=== PATIENT | female | born 1935 | race Caucasian/White ===

== ENCOUNTER 2018-01-22 10:53 | Inpatient (IN) | payer OTHER ==
[~2018-01-22] VITALS: Ht 139.7 cm; Wt 78.0 kg
[2018-01-22] VITALS: BP 104/65; PULSE 67; TEMP 37; O2SAT 91
[~2018-01-22 10:53] MED LIST: ATOR-22 PO; BIMA0.038 OPB; CALC200S; CLTP PO; GLUCOSAMINE PO; LISI-725 PO; METO50TA8 PO; MULT-506 PO; NXM/40 PO; RSTOPS OP; XNX25 PO; [UNRECOGNIZED DRUG - OTHER] OPB; [UNRECOGNIZED DRUG - OTHER] PO; timolol OPL
[2018-01-22] MEDS ORDERED: ACETAMINOPHEN IV 100 ML IV STA (11:20)
[2018-01-22] MEDS ORDERED: SODIUM CHLORIDE 0.9% 500ML 500 ML IV STA (11:20)
[2018-01-22] MEDS ORDERED: CHOL1000 PO (11:33)
[2018-01-22] MEDS ORDERED: LEVO50TA PO (11:33)
[2018-01-22] MEDS ORDERED: LISI-789 PO (11:33)
[2018-01-22] MEDS ORDERED: CITA10TA4 PO (11:33)
[2018-01-22] MEDS ORDERED: CALC200S6 (11:33)
[2018-01-22] MEDS ORDERED: FAMO20TA11 PO (11:33)
[2018-01-22] MEDS ORDERED: METO25TA3 PO (11:33)
[2018-01-22] MEDS ORDERED: LOPE1CAP6 PO ×2 (11:33)
[2018-01-22] MEDS ORDERED: GLUCTAB54 PO (11:33)
[2018-01-22] MEDS ORDERED: ALPR-411 PO (11:33)
[2018-01-22] MEDS ORDERED: FRS/40 PO (11:33)
[2018-01-22] MEDS ORDERED: OMEG10007 PO (11:33)
[2018-01-22] MEDS ORDERED: ALEN70TA4 PO (11:33)
[2018-01-22] MEDS ORDERED: PANT40TA PO (11:33)
[2018-01-22] MEDS ORDERED: PRED1SUS17 OPB (11:47)
[2018-01-22] MEDS ORDERED: CALC-354 PO (11:47)
[2018-01-22] MEDS ORDERED: BRIM0.2S OPL (11:47)
[2018-01-22 12:11] LABS: HEMATOCRIT 43.1 % (37-47); HEMOGLOBIN 13.9 g/dL (12.0-16.0); MEAN CELL VOLUME 103.6 fL (80-100); MEAN CORPUSCULAR HEMOGLOBIN 33.4 pg (25-34); MEAN CORPUSCULAR HGB CONC 32.3 g/dl (32-36); MEAN PLATELET VOLUME 10.5 fL (7.4-10.4); PLATELET COUNT 131 K/uL (130-400); RED CELL DISTRIBUTION WIDTH CV 14.6 % (11.5-14.5); RED CELL DISTRIBUTION WIDTH SD 55.7 fL (36.4-46.3); WHITE BLOOD COUNT 8.41 K/uL (4.8-10.8)
[2018-01-22 12:35] LABS: BLOOD UREA NITROGEN 14 mg/dl (7-18); CALCIUM 8.3 mg/dl (8.5-10.1); CARBON DIOXIDE 37 mmol/L (21-32); CREATININE 0.55 mg/dl (0.60-1.20); GLUCOSE 101 mg/dl (70-99); POTASSIUM 4.5 mmol/L (3.5-5.1); SODIUM 140 mmol/L (136-145)
--- NOTE | 2018-01-22 13:17 | DIAGNOSTIC IMAGING REPORT ---
CHEST ONE VIEW PORTABLE CLINICAL HISTORY: 82 years-old Female presenting with sob, fall, right hip pain. TECHNIQUE: Portable supine AP view of the chest was obtained. COMPARISON: 2010. FINDINGS: Atherosclerosis of the aortic arch. Cardiac silhouette enlarged. Chronic retrocardiac opacity likely represents a large hilar hernia. Mild pulmonary vascular prominence. Small right pleural effusion. No pneumothorax. Osteopenia and degenerative changes of the spine. Degenerative changes of the glenohumeral joints, right greater than left. Osseous structures normal. IMPRESSION: 1. Cardiac megaly and volume overload. No alexandro pulmonary edema. 2. Small right pleural effusion. 3. Large hiatal hernia. Electronically signed by: Rebel Canales M.D. 01/22/2018 1:15 PM Dictated Date/Time: 01/22/2018 1:14 PM
--- NOTE | 2018-01-22 13:20 | DIAGNOSTIC IMAGING REPORT ---
R HIP UNILATERAL 2 VIEWS CLINICAL HISTORY: 82 years-old Female presenting with fall, pain. TECHNIQUE: Frontal and frog-leg lateral views of the right hip were obtained. COMPARISON: 01/07/2011. FINDINGS: Postsurgical changes of total right hip arthroplasty. One of the acetabular screws violate the medial wall significantly extending into the pelvis. This finding is not changed from 2010. Additional plate and cerclage wire fixation of the proximal metaphysis along the lateral aspect of the proximal femur. The degree of osteopenia makes assessment for acute fracture difficult. Allowing for this limitation, there is a subtle cortical deformity along the lateral and posterior aspect immediately inferior to the most inferior cerclage wire. Either heterotopic ossification or osseous fragments from prior fracture evident along the inferior aspect of the joint. Visualized portion of the bony pelvis intact. IMPRESSION: Total right hip arthroplasty. The degree of osteopenia makes assessment for acute fracture difficult. Within this limitation, subtle cortical deformity along the lateral and posterior aspect of the proximal metaphysis of the right femur concerning for fracture. CT could be considered to confirm this finding. Electronically signed by: Rebel Canales M.D. 01/22/2018 1:19 PM Dictated Date/Time: 01/22/2018 1:16 PM
--- NOTE | 2018-01-22 13:22 | DIAGNOSTIC IMAGING REPORT ---
R FEMUR 2 VIEWS ROUTINE CLINICAL HISTORY: 82 years-old Female presenting with fall, pain. TECHNIQUE: Frontal and lateral views of the right femur were obtained. COMPARISON: 01/07/2011. FINDINGS: Total right hip arthroplasty with an extended stem prosthetic diaphyseal component. Total right knee arthroplasty. Osteopenia. This limits evaluation for fracture. Cortical defect at the posterior and lateral aspect of the proximal femoral metadiaphysis immediately inferior to the inferior most cerclage wire. This is concerning for nondisplaced fracture. IMPRESSION: Findings suspicious for nondisplaced fracture immediately inferior to the inferior most cerclage wire along the posterior lateral proximal metadiaphysis of the right femur. Electronically signed by: Rebel Canales M.D. 01/22/2018 1:21 PM Dictated Date/Time: 01/22/2018 1:19 PM
--- NOTE | 2018-01-22 13:23 | DIAGNOSTIC IMAGING REPORT ---
PELVIS 1 OR 2 VIEW ROUTINE CLINICAL HISTORY: 82 years-old Female presenting with fall, pain. TECHNIQUE: Single frontal view of the pelvis was obtained. COMPARISON: 01/07/2011. FINDINGS: Severe osteopenia. This limits evaluation for fracture. Allowing for this, no evidence of acute fracture or malalignment. Total right hip arthroplasty with a screw traversing the medial wall of the acetabulum, unchanged prior. Sacroiliac joints, pubic symphysis, and left hip joint congruent. Degenerative changes of the lower lumbar spine. Atherosclerosis. Moderate stool burden. IMPRESSION: Severe osteopenia limits evaluation for fracture. Allowing for this, no acute osseous injury is apparent. If there is continuing clinical concern, CT should be obtained due to the limited sensitivity of this radiograph. Electronically signed by: Rebel Canales M.D. 01/22/2018 1:22 PM Dictated Date/Time: 01/22/2018 1:21 PM
--- NOTE | 2018-01-22 14:25 | DIAGNOSTIC IMAGING REPORT ---
R LOWER EXTREMITY WITHOUT CLINICAL HISTORY: 82 years-old Female presenting with hip pain, poss fx on plain films. TECHNIQUE: Multidetector CT of the right hip was performed without the use of intravenous contrast. 3-D volumetric and/or maximum intensity projection (MIP) images were subsequently reconstructed for review. IV contrast: None. A dose lowering technique was used consistent with the principles of ALARA (as low as reasonably achievable). COMPARISON: Plain radiographs performed earlier today. CT DOSE (mGy.cm): The estimated cumulative dose is 678.99 mGy.cm. 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 Bilateral total knee arthroplasty. Streak artifact arising from hardware limits evaluation. Allowing for this, periosteal reaction noted at the inferior margin of the more inferior cerclage wire along the proximal femoral diaphysis. Allowing for degradation of image quality, no convincing evidence of a fracture plane. No acute hardware complication. Several of the acetabular screws of the acetabular prosthetic component traverses the medial cortex of the pelvis unchanged from prior. Heterotopic ossification noted along the inferior hip joint. Minimally displaced fracture of the inferior right pubic ramus (series 3 image 118). Posttraumatic deformity of the left inferior pubic ramus (series 3 image 109). There is also suggestion of a nondisplaced fracture plane at the acetabular aspect of the right superior ramus. Limited evaluation of the soft tissues demonstrates no significant pelvic hematoma. Grossly normal bowel, bladder, and uterus. No superficial hematoma. IMPRESSION: 1. Nondisplaced to minimally displaced fractures of the right superior and inferior pubic rami. 2. No convincing evidence of periprosthetic fracture allowing for significant image quality degradation due to hardware. Furthermore, osteopenia degrades evaluation. Electronically signed by: Rebel Canales M.D. 01/22/2018 2:24 PM Dictated Date/Time: 01/22/2018 2:18 PM
[2018-01-22] MEDS ORDERED: MAGNESIUM OXIDE 400 MG TAB PO STA (14:36)
[2018-01-22 15:00] VITALS: O2SAT 94; Ht 139.7 cm; Wt 78.0 kg
[2018-01-22] MEDS ORDERED: POLYETHYLENE (MIRALAX) 17 GM PACK PO PRN (15:00)
[2018-01-22] MEDS ORDERED: MAGNESIUM HYDROXIDE SUSP 30 ML UDC PO PRN (15:00)
[2018-01-22] MEDS ORDERED: ONDANSETRON INJ 2 MG/ML 2 ML VIAL IV PRN (15:00)
[2018-01-22] MEDS ORDERED: ALUMINUM/MAGNESIUM/SIMETH (MAALOX MAX) 30 ML UDC PO PRN (15:00)
[2018-01-22] MEDS ORDERED: SODIUM CHLORIDE 0.9% 1000ML 1,000 ML IV SCH (15:15)
--- NOTE | 2018-01-22 16:00 | EMERGENCY ROOM VISIT NOTE ---
History Report prepared by Zenon: Lizbeth Thurston Under the Supervision of: Dr. Morris Grady M.D. 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 She reports she was walking with her walker this morning when she fell onto her right hip. She rates her pain as a 10/10 when it began but currently has no pain. Pt notes that movement worsens her pain and she denies any fevers or SOB. She reports her right hip has been replaced twice, she wears 2 L oxygen only at night, and regularly takes Lasix. 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 A total of 10 systems reviewed and were otherwise negative. Past Medical & Surgical Medical Problems: (1) Anxiety (2) Chronic diastolic CHF (congestive heart failure) (3) Chronic respiratory failure with hypoxia (4) GERD (gastroesophageal reflux disease) (5) Hiatal hernia (6) HLD (hyperlipidemia) (7) HTN (hypertension) (8) Hypothyroidism (9) Pubic ramus fracture (10) Pulmonary hypertension Surgical Problems: (1) H/O cataract removal with insertion of prosthetic lens (2) H/O detached retina repair (3) History of bilateral knee replacement (4) History of cardiac cath (5) History of right hip replacement Family History Omitted secondary to age Social History Smoking Status: Never Smoker Housing Status: lives alone Occupation Status: retired Current/Historical Medications Scheduled Alendronate Sodium (Fosamax), 70 MG PO WK Atorvastatin (Lipitor), 20 MG PO HS Brimonidine Tartrate-Timolol M (Combigan), 1 DROP OPL BID Calcium Carbonate-Cholecalcife (Caltrate 600+D), 1 TAB PO DAILY Cholecalciferol (Vitamin D3), 1 TAB PO DAILY Citalopram Hydrobromide (Citalopram Hydrobromide), 1 TAB PO DAILY Famotidine (Pepcid), 20 MG PO DAILY Fish Oil (Marissa-3), 1,000 MG PO DAILY Furosemide (Lasix), 40 MG PO UD Kcdbdwnbhdl-Ubdjijiyakt-Aupzpa (Glucosamine Chondroitin M), 1 TAB PO DAILY Home O2 Therapy (Oxygen), 2 LITERS NA UD Levothyroxine Sodium (Synthroid), 50 MCG PO DAILY Lisinopril (Zestril), 2.5 MG PO DAILY Metoprolol Succ (Toprol Xl) (Toprol-Xl), 25 MG PO DAILY Multivitamin (Multivitamin), 1 TABLET PO DAILY Pantoprazole (Protonix), 40 MG PO DAILY Pilocarpine Hcl (Isopto Carpine 4% Oph), 2 DROPS OPB BID Scheduled PRN Alprazolam (Xanax), 0.5 MG PO BID PRN for Anxiety Loperamide Hcl (Anti-Diarrheal), 2 MG PO UD PRN for Diarrhea Allergies Coded Allergies: No Known Allergies (Verified , 01/22/18) Physical Exam Vital Signs Date Time Temp Pulse Resp B/P (MAP) Pulse Ox O2 Delivery O2 Flow Rate FiO2 01/22/18 14:05 58 150/73 94 Nasal Cannula 2.0 01/22/18 12:50 60 17 155/92 95 Nasal Cannula 2.0 01/22/18 11:46 57 17 153/82 01/22/18 11:05 94 Nasal Cannula 2.0 01/22/18 11:04 62 01/22/18 11:01 36.5 64 18 161/102 80 Room Air Physical Exam GENERAL: Patient is in no acute distress. HEENT: No acute trauma, normocephalic atraumatic, mucous membranes moist, no nasal congestion, no scleral icterus. NECK: No stridor, no adenopathy, no meningismus, trachea is midline. LUNGS: Decreased breath sounds bilaterally. Breath sounds are equal. No respiratory distress. No wheezing or rhonchi. HEART: Without murmurs gallops or rubs, regular rate and rhythm. ABDOMEN: Soft, nontender, bowel sounds positive, no hernias, no peritonitis. EXTREMITIES: No gross deformity to the RLE. Pain to palpate the right hip laterally. Pain with movement of the right hip. NVI distally in the RLE. NEUROLOGIC: Oriented x 3, no acute motor or sensory deficits, no focal weakness. SKIN: No rash, no jaundice, no diaphoresis. Medical Decision & Procedures ER Provider Diagnostic Interpretation: Radiology results as stated below per my review and radiologist interpretation: PELVIS 1 OR 2 VIEW ROUTINE CLINICAL HISTORY: 82 years-old Female presenting with fall, pain. TECHNIQUE: Single frontal view of the pelvis was obtained. COMPARISON: 01/07/2011. FINDINGS: Severe osteopenia. This limits evaluation for fracture. Allowing for this, no evidence of acute fracture or malalignment. Total right hip arthroplasty with a screw traversing the medial wall of the acetabulum, unchanged prior. Sacroiliac joints, pubic symphysis, and left hip joint congruent. Degenerative changes of the lower lumbar spine. Atherosclerosis. Moderate stool burden. IMPRESSION: Severe osteopenia limits evaluation for fracture. Allowing for this, no acute osseous injury is apparent. If there is continuing clinical concern, CT should be obtained due to the limited sensitivity of this radiograph. Electronically signed by: Rebel Canales M.D. 01/22/2018 1:22 PM R HIP UNILATERAL 2 VIEWS CLINICAL HISTORY: 82 years-old Female presenting with fall, pain. TECHNIQUE: Frontal and frog-leg lateral views of the right hip were obtained. COMPARISON: 01/07/2011. FINDINGS: Postsurgical changes of total right hip arthroplasty. One of the acetabular screws violate the medial wall significantly extending into the pelvis. This finding is not changed from 2010. Additional plate and cerclage wire fixation of the proximal metaphysis along the lateral aspect of the proximal femur. The degree of osteopenia makes assessment for acute fracture difficult. Allowing for this limitation, there is a subtle cortical deformity along the lateral and posterior aspect immediately inferior to the most inferior cerclage wire. Either heterotopic ossification or osseous fragments from prior fracture evident along the inferior aspect of the joint. Visualized portion of the bony pelvis intact. IMPRESSION: Total right hip arthroplasty. The degree of osteopenia makes assessment for acute fracture difficult. Within this limitation, subtle cortical deformity along the lateral and posterior aspect of the proximal metaphysis of the right femur concerning for fracture. CT could be considered to confirm this finding. Electronically signed by: Rebel Canales M.D. 01/22/2018 1:19 PM R FEMUR 2 VIEWS ROUTINE CLINICAL HISTORY: 82 years-old Female presenting with fall, pain. TECHNIQUE: Frontal and lateral views of the right femur were obtained. COMPARISON: 01/07/2011. FINDINGS: Total right hip arthroplasty with an extended stem prosthetic diaphyseal component. Total right knee arthroplasty. Osteopenia. This limits evaluation for fracture. Cortical defect at the posterior and lateral aspect of the proximal femoral metadiaphysis immediately inferior to the inferior most cerclage wire. This is concerning for nondisplaced fracture. IMPRESSION: Findings suspicious for nondisplaced fracture immediately inferior to the inferior most cerclage wire along the posterior lateral proximal metadiaphysis of the right femur. Electronically signed by: Rebel Canales M.D. 01/22/2018 1:21 PM CHEST ONE VIEW PORTABLE CLINICAL HISTORY: 82 years-old Female presenting with sob, fall, right hip pain. TECHNIQUE: Portable supine AP view of the chest was obtained. COMPARISON: 2010. FINDINGS: Atherosclerosis of the aortic arch. Cardiac silhouette enlarged. Chronic retrocardiac opacity likely represents a large hilar hernia. Mild pulmonary vascular prominence. Small right pleural effusion. No pneumothorax. Osteopenia and degenerative changes of the spine. Degenerative changes of the glenohumeral joints, right greater than left. Osseous structures normal. IMPRESSION: 1. Cardiac megaly and volume overload. No alexandro pulmonary edema. 2. Small right pleural effusion. 3. Large hiatal hernia. Electronically signed by: Rebel Canales M.D. 01/22/2018 1:15 PM R LOWER EXTREMITY WITHOUT CLINICAL HISTORY: 82 years-old Female presenting with hip pain, poss fx on plain films. TECHNIQUE: Multidetector CT of the right hip was performed without the use of intravenous contrast. 3-D volumetric and/or maximum intensity projection (MIP) images were subsequently reconstructed for review. IV contrast: None. A dose lowering technique was used consistent with the principles of ALARA (as low as reasonably achievable). COMPARISON: Plain radiographs performed earlier today. CT DOSE (mGy.cm): The estimated cumulative dose is 678.99 mGy.cm. 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 Bilateral total knee arthroplasty. Streak artifact arising from hardware limits evaluation. Allowing for this, periosteal reaction noted at the inferior margin of the more inferior cerclage wire along the proximal femoral diaphysis. Allowing for degradation of image quality, no convincing evidence of a fracture plane. No acute hardware complication. Several of the acetabular screws of the acetabular prosthetic component traverses the medial cortex of the pelvis unchanged from prior. Heterotopic ossification noted along the inferior hip joint. Minimally displaced fracture of the inferior right pubic ramus (series 3 image 118). Posttraumatic deformity of the left inferior pubic ramus (series 3 image 109). There is also suggestion of a nondisplaced fracture plane at the acetabular aspect of the right superior ramus. Limited evaluation of the soft tissues demonstrates no significant pelvic hematoma. Grossly normal bowel, bladder, and uterus. No superficial hematoma. IMPRESSION: 1. Nondisplaced to minimally displaced fractures of the right superior and inferior pubic rami. 2. No convincing evidence of periprosthetic fracture allowing for significant image quality degradation due to hardware. Furthermore, osteopenia degrades evaluation. Electronically signed by: Rebel Canales M.D. 01/22/2018 2:24 PM Laboratory Results 01/22/18 11:57 01/22/18 11:57 Test 01/22/18 11:35 01/22/18 11:57 Urine Color YELLOW Urine Appearance CLEAR (CLEAR) Urine pH 7.0 (4.5-7.5) Urine Specific [place] 1.010 (1.000-1.030) Urine Protein NEG (NEG) Urine Glucose (UA) NEG (NEG) Urine Ketones NEG (NEG) Urine Occult Blood NEG (NEG) Urine Nitrite NEG (NEG) Urine Bilirubin NEG (NEG) Urine Urobilinogen NEG (NEG) Urine Leukocyte Esterase TRACE (NEG) Urine WBC (Auto) 1-5 /hpf (0-5) Urine RBC (Auto) 0-4 /hpf (0-4) Urine Hyaline Casts (Auto) 1-5 /lpf (0-5) Urine Epithelial Cells (Auto) >30 /lpf (0-5) Urine Bacteria (Auto) NEG (NEG) Red Blood Count 4.16 M/uL (4.2-5.4) Mean Corpuscular Volume 103.6 fL (80-100) Mean Corpuscular Hemoglobin 33.4 pg (25-34) Mean Corpuscular Hemoglobin Concent 32.3 g/dl (32-36) RDW Standard Deviation 55.7 fL (36.4-46.3) RDW Coefficient of Variation 14.6 % (11.5-14.5) Mean Platelet Volume 10.5 fL (7.4-10.4) Anion Gap 2.0 mmol/L (3-11) Est Creatinine Clear Calc Drug Dose 64.2 ml/min Estimated GFR () 101.2 Estimated GFR (Non- 87.4 BUN/Creatinine Ratio 24.8 (10-20) Calcium Level 8.3 mg/dl (8.5-10.1) Magnesium Level 1.7 mg/dl (1.8-2.4) Troponin I < 0.015 ng/ml (0-0.045) Laboratory results reviewed by me. Medications Administered Medications (Trade) Dose Ordered Sig/Jovan Route Start Time Stop Time Status Last Admin Dose Admin Acetaminophen 100 ml @ 400 mls/hr NOW STAT IV 01/22/18 11:20 01/22/18 11:34 DC 01/22/18 11:45 400 MLS/HR Sodium Chloride 500 ml @ 999 mls/hr Q31M STAT IV 01/22/18 11:20 01/22/18 11:50 DC 01/22/18 11:46 999 MLS/HR Magnesium Oxide (Mag-Ox Tab) 400 mg NOW STAT PO 01/22/18 14:36 01/22/18 14:37 DC 01/22/18 15:35 400 MG ECG Per My Interpretation Indication: other (hip pain) Rate (beats per minute): 64 Rhythm: normal sinus Findings: RBBB, no ectopy, other (no PVCs) ED Course 1115: The patient was evaluated in room C9. A complete history and physical exam was performed. 1120: Ordered Sodium Chloride 500 ml @ 999 mls/hr IV, Acetaminophen 100 ml @ 400 mls/hr IV 1336: I reevaluated the pt at this time. She will be sent to CT as the x-rays are suspicious of a fracture. 1436: Ordered Magnesium Oxide 400 mg PO 1441: Discussed the patient's case with CECILE Jones. The patient will be evaluated for further management. Medical Decision Differential diagnosis: Etiologies such as hip fracture, hip dislocation, pelvic fracture, femur fracture, pneumonia, CHF, anemia, electrolyte imbalance, UTI, as well as others were entertained.. There is no leukocytosis or worrisome anemia. EKG shows a normal sinus rhythm with a right bundle branch block. Cardiac enzyme testing 1 is not consistent with acute cardiac injury. Chest film does not show anything acute, no pneumonia. Pelvis and right hip and right femur films showed a possible periprosthetic fracture. A CT was recommended. Right hip CT does not show a femur or hip fracture. A superior and inferior right pubic ramus fracture was seen. Urinalysis does not show infection. There was no kidney failure, magnesium slightly low at 1.7. The patient did not require anything stronger for pain. She received IV Tylenol , she was given IV saline. She received a dose of oral magnesium. The patient cannot walk, she cannot move without having severe pain. This type of fracture is typically medically managed. I did speak to the patient and case management. I talked with the on-call hospitalist. The patient is likely going to require rehab and strengthening to get back to walking as she had before. Medication Reconcilliation Current Medication List: was personally reviewed by me Blood Pressure Screening Patient's blood pressure: Elevated blood pressure Referred to Hospitalist Consults Time Called: 1435 Consulting Physician: CECILE Jones Returned Call: [phone] Discussed the patient's case with CECILE Jones. The patient will be evaluated for further management. Impression Primary Impression: Pelvic fracture Additional Impressions: Fall Hypomagnesemia Scribe Attestation The scribe's documentation has been prepared under my direction and personally reviewed by me in its entirety. I confirm that the note above accurately reflects all work, treatment, procedures, and medical decision making performed by me. Departure Information Dispostion Being Evaluated By Hospitalist (CECILE Jones) Patient Instructions My [facility] Problem Qualifiers
[2018-01-22] MEDS ORDERED: PILOCARPINE HCL4 % OPB (16:03)
[2018-01-22] MEDS ORDERED: OXGN (16:09)
[2018-01-22 16:15] VITALS: BP 136/76; PULSE 61; TEMP 36.6; O2SAT 93
[2018-01-22] MEDS ORDERED: ALBUT/IPRATROP 3MG/0.5MG NEB 3 ML VIAL INH PRN (16:15)
[2018-01-22] MEDS ORDERED: LOPERAMIDE HCL 2 MG CAP PO PRN (16:15)
[2018-01-22 16:59] LABS: PTT PATIENT 26.9 SECONDS (21.0-31.0)
[2018-01-22] MEDS ORDERED: FUROSEMIDE 40 MG TAB PO SCH (17:00)
[2018-01-22] MEDS ORDERED: METOPROLOL SUCC 25MG EXT REL TAB PO SCH (17:00)
[2018-01-22] MEDS ORDERED: LISINOPRIL 2.5 MG TAB PO SCH (17:00)
--- NOTE | 2018-01-22 17:05 | History and Physical ---
History & Physical Date & Time of Service: Jan 22, 2018 at 16:11 Chief Complaint: Hip Pain Primary Care Physician: No Doctor, Assigned History of Present Illness Source: patient, family, clinic records, hospital records Pt is 82 y/o F with PMH chronic diastolic CHF, pulmonary hypertension, hiatal hernia, GERD, HLD, chronic hypoxic respiratory failure on oxygen 2 LNC with activity and at bedtime (patient using differently and using at bedtime only), BRANDON on oxygen 2L NC at bedtime, hypothyroidism, anxiety presented to ER with complaint of right hip pain after fall. Patient states this morning she was trying to weigh herself and when getting on the scale lost her balance falling onto right side. Patient denies hitting her head. Denies any prior dizziness. Denies LOC. Patient complaining of pain to right hip and right groin area with limited range of motion and unable to fully bear weight to right leg secondary to pain. 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 Denies any lower extremity paresthesias or loss of sensation. Denies back, knee, ankle/foot, neck pain, denies any other injury. Patient reports that she weighs herself daily and her weight has been staying within 2 pounds. If weight goes up more than 2 pounds she takes additional Lasix. She denies any increased shortness of breath from baseline, chest pain, increased edema. Patient reports history of chronic loose stools and uses Imodium once daily as needed. Has not used yesterday or today. Denies fever/chills, diaphoresis, N/V/ C, HARRISON, orthopnea, palpitations, cough, sore throat, choking, otalgia, rhinorrhea , abdominal pain, rashes, urinary symptoms. Patient denies history of frequent falls. Past Medical/Surgical History Medical Problems: (1) Anxiety Status: Chronic (2) Chronic diastolic CHF (congestive heart failure) Status: Chronic (3) Chronic respiratory failure with hypoxia Status: Chronic (4) GERD (gastroesophageal reflux disease) Status: Chronic (5) Hiatal hernia Status: Chronic (6) HLD (hyperlipidemia) Status: Chronic (7) HTN (hypertension) Status: Chronic (8) Hypothyroidism Status: Chronic (9) Pulmonary hypertension Status: Chronic Surgical Problems: (1) H/O cataract removal with insertion of prosthetic lens Status: Resolved (2) H/O detached retina repair Status: Resolved (3) History of bilateral knee replacement Status: Resolved (4) History of cardiac cath Permanent Comment: 11/21/12-[facility] [place]-Dr. Shelli Covington Status: Resolved (5) History of right hip replacement Permanent Comment: 1997, revision right hip 2010 Status: Resolved Family History FH: CHF (congestive heart failure) FH: breast cancer FH: dementia Social History Smoking Status: Never Smoker Smokeless Tobacco Use: No Alcohol Use: none Drug Use: none Occupational Status: retired Immunizations History of Influenza Vaccine: Yes History of Tetanus Vaccine?: Yes History of Pneumococcal: Yes History of Hepatitis B Vaccine: Unknown Allergies Coded Allergies: No Known Allergies (Verified , 01/22/18) Home Medications Scheduled Alendronate Sodium (Fosamax), 70 MG PO WK Atorvastatin (Lipitor), 20 MG PO HS Brimonidine Tartrate-Timolol M (Combigan), 1 DROP OPL BID Calcium Carbonate-Cholecalcife (Caltrate 600+D), 1 TAB PO DAILY Cholecalciferol (Vitamin D3), 1 TAB PO DAILY Citalopram Hydrobromide (Citalopram Hydrobromide), 1 TAB PO DAILY Famotidine (Pepcid), 20 MG PO DAILY Fish Oil (Etna-3), 1,000 MG PO DAILY Furosemide (Lasix), 40 MG PO UD Fyqtibrtpiq-Vqdmvtbwqtc-Whkroh (Glucosamine Chondroitin M), 1 TAB PO DAILY Home O2 Therapy (Oxygen), 2 LITERS NA UD Levothyroxine Sodium (Synthroid), 50 MCG PO DAILY Lisinopril (Zestril), 2.5 MG PO DAILY Metoprolol Succ (Toprol Xl) (Toprol-Xl), 25 MG PO DAILY Multivitamin (Multivitamin), 1 TABLET PO DAILY Pantoprazole (Protonix), 40 MG PO DAILY Pilocarpine Hcl (Isopto Carpine 4% Oph), 2 DROPS OPB BID Scheduled PRN Alprazolam (Xanax), 0.5 MG PO BID PRN for Anxiety Loperamide Hcl (Anti-Diarrheal), 2 MG PO UD PRN for Diarrhea Review of Systems See HPI for pertinent positives & negatives. All other systems reviewed and were otherwise negative Physical Exam Vital Signs Date Time Temp Pulse Resp B/P (MAP) Pulse Ox O2 Delivery O2 Flow Rate FiO2 01/22/18 15:33 58 17 150/73 94 01/22/18 15:00 94 Nasal Cannula 2.0 01/22/18 14:05 58 150/73 94 Nasal Cannula 2.0 01/22/18 12:50 60 17 155/92 95 Nasal Cannula 2.0 01/22/18 11:46 57 17 153/82 01/22/18 11:05 94 Nasal Cannula 2.0 01/22/18 11:04 62 01/22/18 11:01 36.5 64 18 161/102 80 Room Air General Appearance: WD/WN, no apparent distress Head: normocephalic, atraumatic Eyes: normal inspection, PERRL, sclerae normal ENT: hearing grossly normal, pharynx normal, + pertinent finding (Mucous membranes moist) Neck: supple, trachea midline Respiratory/Chest: no respiratory distress, no accessory muscle use, + decreased breath sounds Cardiovascular: regular rate, rhythm, normal peripheral pulses Abdomen/GI: normal bowel sounds, non tender, soft Extremities/Musculoskelatal: + pertinent finding (Right hip: Right anterior lateral hip tender to palpation, no ecchymosis or erythema noted, limited ability to flex hip secondary to pain. Remaining right leg and right knee/ right ankle nontender to palpation, no edema or ecchymosis noted. Remaining extremities nontender with range of motion intact. Bilateral pedal pushes and pulls intact. Distal pulses intact. Brisk capillary refill. Sensation to light touch intact.) Neurologic/Psych: alert, normal mood/affect, oriented x 3 Skin: warm/dry Diagnostics Laboratory Results Results Past 24 Hours Test 01/22/18 11:35 01/22/18 11:57 01/22/18 15:05 Range/Units Urine Color YELLOW Urine Appearance CLEAR CLEAR Urine pH 7.0 4.5-7.5 Urine Specific [place] 1.010 1.000-1.030 Urine Protein NEG NEG Urine Glucose (UA) NEG NEG Urine Ketones NEG NEG Urine Occult Blood NEG NEG Urine Nitrite NEG NEG Urine Bilirubin NEG NEG Urine Urobilinogen NEG NEG Urine Leukocyte Esterase TRACE NEG Urine WBC (Auto) 1-5 0-5 /hpf Urine RBC (Auto) 0-4 0-4 /hpf Urine Hyaline Casts (Auto) 1-5 0-5 /lpf Urine Epithelial Cells (Auto) >30 0-5 /lpf Urine Bacteria (Auto) NEG NEG White Blood Count 8.41 4.8-10.8 K/uL Red Blood Count 4.16 4.2-5.4 M/uL Hemoglobin 13.9 12.0-16.0 g/dL Hematocrit 43.1 37-47 % Mean Corpuscular Volume 103.6 80-100 fL Mean Corpuscular Hemoglobin 33.4 25-34 pg Mean Corpuscular Hemoglobin Concent 32.3 32-36 g/dl RDW Standard Deviation 55.7 36.4-46.3 fL RDW Coefficient of Variation 14.6 11.5-14.5 % Platelet Count 131 130-400 K/uL Mean Platelet Volume 10.5 7.4-10.4 fL Sodium Level 140 136-145 mmol/L Potassium Level 4.5 3.5-5.1 mmol/L Chloride Level 101 98-107 mmol/L Carbon Dioxide Level 37 21-32 mmol/L Anion Gap 2.0 3-11 mmol/L Blood Urea Nitrogen 14 7-18 mg/dl Creatinine 0.55 0.60-1.20 mg/dl Est Creatinine Clear Calc Drug Dose 64.2 ml/min Estimated GFR () 101.2 Estimated GFR (Non- 87.4 BUN/Creatinine Ratio 24.8 10-20 Random Glucose 101 70-99 mg/dl Calcium Level 8.3 8.5-10.1 mg/dl Magnesium Level 1.7 1.8-2.4 mg/dl Troponin I < 0.015 0-0.045 ng/ml Diagnostic Radiology RIGHT LOWER EXTREMITY CT: IMPRESSION: 1. Nondisplaced to minimally displaced fractures of the right superior and inferior pubic rami. 2. No convincing evidence of periprosthetic fracture allowing for significant image quality degradation due to hardware. Furthermore, osteopenia degrades evaluation. CHEST X-RAY IMPRESSION: 1. Cardiomegaly and volume overload. No alexandro pulmonary edema. 2. Small right pleural effusion. 3. Large hiatal hernia. RIGHT FEMUR X-RAY IMPRESSION: Findings suspicious for nondisplaced fracture immediately inferior to the inferior most cerclage wire along the posterior lateral proximal metadiaphysis of the right femur. RIGHT HIP X-RAY IMPRESSION: Total right hip arthroplasty. The degree of osteopenia makes assessment for acute fracture difficult. Within this limitation, subtle cortical deformity along the lateral and posterior aspect of the proximal metaphysis of the right femur concerning for fracture. CT could be considered to confirm this finding. PELVIS X-RAY IMPRESSION: Severe osteopenia limits evaluation for fracture. Allowing for this, no acute osseous injury is apparent. If there is continuing clinical concern, CT should be obtained due to the limited sensitivity of this radiograph. EKG EKG: normal sinus rhythm, rate 64, RBBB Impression Assessment and Plan Pt is 82 y/o F with PMH chronic diastolic CHF, pulmonary hypertension, hiatal hernia, GERD, HLD, chronic hypoxic respiratory failure on oxygen 2 LNC with activity and at bedtime (patient using differently and using at bedtime only), BRANDON on oxygen 2L NC at bedtime, hypothyroidism, anxiety presented to ER with complaint of right hip pain after fall. RIGHT PUBIC RAMI FRACTURE S/P MECHANICAL FALL Denies dizziness, syncope, LOC, CP, SOB. Denies other injury. In ER: RLE CT: Nondisplaced to minimally displaced fractures of the right superior and inferior pubic rami. No convincing evidence of periprosthetic fracture allowing for significant image quality degradation due to hardware. Pt given acetaminophen IV, 500ml NSS -morphine prn pain -ortho consult -PT/OT consult HYPOMAGNESIA Ma.7 -given 400mg po in ER -monitor and replace as appropriate CHRONIC HYPOXIC RESPIRATORY FAILURE Pt is to use 2L NC with activity and HS, however pt only uses only HS. In ER pt 80% on RA up to 95% on 2L NC. Denies SOB, CP, dizziness. CXR without infiltrate -supplemental oxygen -nebs prn CHRONIC DIASTOLIC CHF PULMONARY HYPERTENSION Denies weight gain, increased edema, SOB. No significant edema on exam. CXR: Cardiomegaly and volume overload. No alexandro pulmonary edema. Small right pleural effusion. Hx echo 2017: EF: 63%, grade II diastolic dysfunction -continue po lasix BRANDON -Oxygen 2L NC HS HYPOTHYROIDISM -continue levothyroxine ANXIETY -continue citalopram, alprazolam prn GERD/HIATAL HERNIA -continue PPI HLD -continue atorvastatin DVT Prophylaxis -heparin SQ Admit tele DNR/DNI as per discussion with pt Follows with Kaitlyn Alexander for routine care Pt was seen with Dr Perez. See addendum ATTENDING ADDENDUM Patient seen and examined, care coordinated with Imelda Interiano PA-C Labs and images reviewed This is a 80-year-old female who sustained a mechanical fall/lost balance and fell into stable non-displaced fracture of right superior and inferior pubic Given the nature of fracture , conservative approach should be approach appropriate Admit to medical floor Pain control Weightbearing as tolerated Orthopedics eval requested for further input PT OT evaluation, assess balance issues/fall risk CODE STATUS: DNR/DNI Please refer to further documentation by Imelda Interiano PA-C for discussion of other chronic issues Caity Perez MD Advanced Directives Existing Living Will: No Existing Power of Wharf Hand: Yes Resuscitation Status VTE Prophylaxis Will order VTE Prophylaxis: Yes Additional Copies To Kaitlyn Fuentes
[2018-01-22] MEDS ORDERED: OXYCODONE/ACETAMINOPHEN 5-325 TAB PO PRN (18:30)
[2018-01-22] MEDS: MoRPHine SULFATE 2 MG/ML CARP IV PRN (19:31)
[2018-01-22] MEDS: DOCUSATE SODIUM 100 MG CAP PO SCH (21:00)
[2018-01-22] MEDS: PILOCARPINE HCL 4% OP SOLN 15 ML BTL OPB SCH (21:10)
[2018-01-22] MEDS: ATORVASTATIN 20 MG TAB PO SCH (21:10)
[2018-01-22] MEDS: HEPARIN SOD 5000 UNIT/0.5 ML CARP SQ SCH (21:15)
[2018-01-22] MEDS: ALPRAZOLAM 0.5 MG TAB PO PRN (21:22)
[2018-01-22] MEDS: OXYCODONE/ACETAMINOPHEN 5-325 TAB PO PRN (22:40)
[2018-01-23] VITALS: BP 104/65; PULSE 67; TEMP 37; O2SAT 91
[2018-01-23] MEDS: MoRPHine SULFATE 2 MG/ML CARP IV PRN (00:54)
[2018-01-23] MEDS: LEVOTHYROXINE 50 MCG TAB PO SCH (06:10)
[2018-01-23] MEDS: OXYCODONE/ACETAMINOPHEN 5-325 TAB PO PRN ×3 (06:17→20:59)
[2018-01-23 06:32] LABS: HEMOGLOBIN 12.5 g/dL (12.0-16.0); MEAN CELL VOLUME 104.7 fL (80-100); MEAN CORPUSCULAR HEMOGLOBIN 32.7 pg (25-34); MEAN CORPUSCULAR HGB CONC 31.3 g/dl (32-36); MEAN PLATELET VOLUME 11.1 fL (7.4-10.4); PLATELET COUNT 116 K/uL (130-400); WHITE BLOOD COUNT 5.32 K/uL (4.8-10.8)
[2018-01-23 07:05] LABS: CALCIUM 7.9 mg/dl (8.5-10.1); CREATININE 0.55 mg/dl (0.60-1.20); POTASSIUM 3.9 mmol/L (3.5-5.1)
[2018-01-23 07:23] VITALS: BP 95/57; PULSE 67; TEMP 36.8; O2SAT 91
[2018-01-23 09:41] VITALS: BP 95/61
[2018-01-23] MEDS: LISINOPRIL 2.5 MG TAB PO SCH (09:43)
[2018-01-23] MEDS: METOPROLOL SUCC 25MG EXT REL TAB PO SCH (09:43)
[2018-01-23] MEDS: PILOCARPINE HCL 4% OP SOLN 15 ML BTL OPB SCH ×2 (09:43→20:50)
[2018-01-23] MEDS: OMEGA-3 (PURIFIED FISH OIL) 1 GM CAP PO SCH (09:44)
[2018-01-23] MEDS: FAMOTIDINE 20 MG TAB PO SCH (09:44)
[2018-01-23] MEDS: FUROSEMIDE 40 MG TAB PO SCH (09:44)
[2018-01-23] MEDS: CITALOPRAM 20 MG TAB PO SCH (09:45)
[2018-01-23] MEDS: PANTOprazole SOD 40 MG TAB PO SCH (09:45)
[2018-01-23] MEDS: CHOLECALCIFEROL 1000 INTER.UNIT TAB PO SCH (09:45)
[2018-01-23] MEDS: CALCIUM 600MG + VIT D 400 IU TAB PO SCH (09:46)
[2018-01-23] MEDS: MULTIVITAMIN TAB PO SCH (09:46)
[2018-01-23] MEDS: DOCUSATE SODIUM 100 MG CAP PO SCH ×2 (09:48→20:50)
[2018-01-23] MEDS: HEPARIN SOD 5000 UNIT/0.5 ML CARP SQ SCH ×2 (09:53→20:56)
--- NOTE | 2018-01-23 10:47 | PROGRESS NOTE ---
DATE: 01/23/2018 Special attention to pubic rami fracture. HISTORY OF PRESENT ILLNESS: This is an 82-year-old female who sustained a mechanical fall into the right hip. She complains of pain in the right hip after the fall. She states injury occurred when she lost her balance. She denies hitting her head or loss of consciousness. She states her hip was not painful prior to this. Revision hip [place] [address] Hannon. PAST MEDICAL HISTORY: Anxiety, chronic CHF, respiratory failure, GERD, hiatal hernia, hyperlipidemia, hypertension, pulmonary hypertension. PAST SURGICAL HISTORY: Bilateral knee replacements, history of right hip replacement and revision. SOCIAL HISTORY: She does not smoke. PHYSICAL EXAMINATION: On right lower extremity examination, she has 5/5 strength in ankle flexion and ankle extension. She can wiggle her toes. Calves are soft and nontender. Thigh is soft. She has no tenderness about her femur. She has mild pain with motion of the hip in the region of the pubic rami. Review of CAT scan of the hip does show superior and inferior pubic rami fractures. Mild displacement is seen. Fracture does appear to be acute. Radiographs of the pelvis do show hip total hip replacement is intact. Protrusion of 1 of the screws is seen medially. A long stem prosthesis with a trochanteric claw and cable is seen. I do not detect evidence of periprosthetic femur fracture on radiographs. No lucency of the hip prosthesis. ASSESSMENT: Right superior and inferior pubic rami fractures. PLAN: I discussed findings and treatment with the patient and family. Currently, she does ambulate with a walker. Recommendation at this point in time is for allowing her to be weightbearing as tolerated with a walker. May continue heparin subQ for DVT prophylaxis. No surgical plans at this point in time. I agree with physical therapy and occupational therapy with continuation of weightbearing as tolerated with a walker. Orthopedics will sign off. She should follow up upon discharge approximately 10-14 days from the injury with Dr. Christensen, our hip specialist.
[2018-01-23 15:17] VITALS: BP 99/64; PULSE 85; TEMP 37.2; O2SAT 93
[2018-01-23 15:26] VITALS: BP 130/84
--- NOTE | 2018-01-23 19:26 | Progress Note ---
Internal Med Progress Note Date of Service: Jan 23, 2018. Provider Documentation: SUBJECTIVE: No pain at rest Limited mobility secondary to pain with activity, out of bed OBJECTIVE: Vital Signs-as noted below Exam: General-elderly female, no apparent Eyes-clear nonicteric, pupils bilateral equal reactive light extraocular muscles ENT-moist oral mucosa Neck-no JVD, no carotid bruit noted, no thyromegaly, trachea mid Lungs-clear to auscultate, no wheeze or rales Heart-S1 and S2 no murmur Abdomen-soft nontender, no organomegaly Extremities-no rash or deformity, no lower extremity Neuro-no focal neurological deficit Lab data as noted below. ASSESSMENT & PLAN: RIGHT PUBIC RAMUS FRACTURE, STATUS POST MECHANICAL FALL Due to loss of balance, leading to fall CT of pelvis shows nondisplaced to minimally displaced fracture of the right superior and inferior pubic rami Appreciate input from orthopedics Conservative management with weightbearing as tolerated possible Osteoporotic Fx ; Xray of pelvis shows severe osteopenia con Calcium /Vit D supplement PT OT pt lives alone ,uses walker at baseline , at present mobility is limited due to pelvis pain /Rt Pubic ramus Fx will benefit with short-term rehab Outpatient follow-up with orthopedics in 4-6 weeks OSTEOPOROSIS : xray of Hip and Pelvis shows severe Osteopenia pt will be continued with Vit D and Calcium supplement cont Fosamax ordered to check Vit D level LOW MAGNESIUM Corrected CHRONIC HYPOXEMIC RESPIRATORY FAILURE Patient is on chronic oxygen 2 L by nasal cannula with activity and at bedtime Respiratory status at baseline Continue supplemental O2 CHRONIC DIASTOLIC CHF/PULMONARY HYPERTENSION No evidence of volume overload or dehydration Continue p.o. Lasix HYPOTHYROIDISM Continue levothyroxine ANXIETY DISORDER Continue citalopram As needed alprazolam GERD/HIATAL HERNIA Continue PPI HYPERLIPIDEMIA Continue statin DVT PROPHYLAXIS Subcu heparin CODE STATUS: DNR/DNI DISPOSITION Patient lives at home, was independent in her ADL Uses rolling walker P t OT evaluation requested May need short term rehab Social service consulted for discharge plan Vital Signs: Date Time Temp Pulse Resp B/P (MAP) Pulse Ox O2 Delivery O2 Flow Rate FiO2 01/24/18 09:07 79 70 01/24/18 07:40 Nasal Cannula 2.0 01/24/18 07:01 36.9 80 16 125/73 (90) 90 2.0 01/24/18 00:40 Nasal Cannula 2.0 01/23/18 23:00 36.8 84 16 116/72 (87) 91 Nasal Cannula 3.0 01/23/18 15:17 37.2 85 22 99/64 (76) 93 3.0 01/23/18 15:10 Room Air 2.0 Lab Results: Results Past 24 Hours Test 01/24/18 05:46 01/24/18 12:32 Range/Units White Blood Count 5.07 4.8-10.8 K/uL Red Blood Count 3.83 4.2-5.4 M/uL Hemoglobin 12.7 12.0-16.0 g/dL Hematocrit 40.4 37-47 % Mean Corpuscular Volume 105.5 80-100 fL Mean Corpuscular Hemoglobin 33.2 25-34 pg Mean Corpuscular Hemoglobin Concent 31.4 32-36 g/dl RDW Standard Deviation 57.4 36.4-46.3 fL RDW Coefficient of Variation 15.0 11.5-14.5 % Platelet Count 99 130-400 K/uL Mean Platelet Volume 10.6 7.4-10.4 fL Platelet Estimate DECREASED Sodium Level 138 136-145 mmol/L Potassium Level 4.2 3.5-5.1 mmol/L Chloride Level 96 98-107 mmol/L Carbon Dioxide Level 36 21-32 mmol/L Anion Gap 6.0 3-11 mmol/L Blood Urea Nitrogen 11 7-18 mg/dl Creatinine 0.54 0.60-1.20 mg/dl Est Creatinine Clear Calc Drug Dose 65.4 ml/min Estimated GFR () 101.9 Estimated GFR (Non- 87.9 BUN/Creatinine Ratio 20.5 10-20 Random Glucose 111 70-99 mg/dl Calcium Level 8.3 8.5-10.1 mg/dl Magnesium Level 1.7 1.8-2.4 mg/dl
[2018-01-23] MEDS: ATORVASTATIN 20 MG TAB PO SCH (20:50)
[2018-01-23] MEDS: BRIMONIDINE TARTRATE-TIMOLOL M 1 DROP BTL OPL SCH (20:51)
[2018-01-23 23:00] VITALS: BP 116/72; PULSE 84; TEMP 36.8; O2SAT 91
[2018-01-24] MEDS: LEVOTHYROXINE 50 MCG TAB PO SCH (05:35)
[2018-01-24 06:04] LABS: HEMATOCRIT 40.4 % (37-47); HEMOGLOBIN 12.7 g/dL (12.0-16.0); MEAN CELL VOLUME 105.5 fL (80-100); MEAN CORPUSCULAR HEMOGLOBIN 33.2 pg (25-34); MEAN CORPUSCULAR HGB CONC 31.4 g/dl (32-36); RED CELL DISTRIBUTION WIDTH SD 57.4 fL (36.4-46.3); WHITE BLOOD COUNT 5.07 K/uL (4.8-10.8)
[2018-01-24 06:38] LABS: CALCIUM 8.3 mg/dl (8.5-10.1); CREATININE 0.54 mg/dl (0.60-1.20); MEAN PLATELET VOLUME 10.6 fL (7.4-10.4); PLATELET COUNT 99 K/uL (130-400); POTASSIUM 4.2 mmol/L (3.5-5.1)
[2018-01-24 07:01] VITALS: BP 125/73; PULSE 80; TEMP 36.9; O2SAT 90
[2018-01-24] MEDS: OXYCODONE/ACETAMINOPHEN 5-325 TAB PO PRN (07:45)
[2018-01-24] MEDS: PILOCARPINE HCL 4% OP SOLN 15 ML BTL OPB SCH ×2 (08:46→21:02)
[2018-01-24] MEDS: MULTIVITAMIN TAB PO SCH (08:47)
[2018-01-24] MEDS: CHOLECALCIFEROL 1000 INTER.UNIT TAB PO SCH ×2 (08:48→21:06)
[2018-01-24] MEDS: CALCIUM 600MG + VIT D 400 IU TAB PO SCH (08:48)
[2018-01-24] MEDS: DOCUSATE SODIUM 100 MG CAP PO SCH ×2 (08:48→21:05)
[2018-01-24] MEDS: OMEGA-3 (PURIFIED FISH OIL) 1 GM CAP PO SCH (08:49)
[2018-01-24] MEDS: FUROSEMIDE 40 MG TAB PO SCH (08:49)
[2018-01-24] MEDS: CITALOPRAM 20 MG TAB PO SCH (08:50)
[2018-01-24] MEDS: LISINOPRIL 2.5 MG TAB PO SCH (08:50)
[2018-01-24] MEDS: METOPROLOL SUCC 25MG EXT REL TAB PO SCH (08:51)
[2018-01-24] MEDS: PANTOprazole SOD 40 MG TAB PO SCH (08:51)
[2018-01-24] MEDS: BRIMONIDINE TARTRATE-TIMOLOL M 1 DROP BTL OPL SCH ×2 (08:52→21:06)
[2018-01-24] MEDS: FAMOTIDINE 20 MG TAB PO SCH (09:02)
--- NOTE | 2018-01-24 09:03 | Clinical Documentation Query ---
CLINICAL DOCUMENTATION QUERY Dr. PARISI, In your clinical opinion is this patient being managed for: x ) Osteoporotic related fracture of R pubic rami ( ) Not Agree ( ) Other explanation of clinical findings (No explanation is considered a No Response) ( ) Unable to determine ( ) Need to Discuss (Phone CDS or qliq) (No discussion is considered a No Response) The medical record reflects the following clinical findings, treatment, and risk factors. Clinical Indicators: 82 yo female presenting after a ground level fall, found to have a R pubic rami fracture. Xrays indicate pt with severe osteopenia. Treatment: ortho consult, pain management, PT/OT, WBAT, continue calcium/Vitamin D supplement Risk Factors: postmenopausal female Please clarify and document your clinical opinion in the progress notes and discharge summary. Terms such as "probable", "suspected", "likely", "questionable", "possible", or "still to be ruled out" are acceptable. IF IN AGREEMENT, YOU MUST DOCUMENT ABOVE DIAGNOSTIC STATEMENT IN DAILY PROGRESS NOTES AND DISCHARGE SUMMARY. This document is not part of the patient's record. Thank You, Luana Crabtree, RN [phone]
[2018-01-24] MEDS: HEPARIN SOD 5000 UNIT/0.5 ML CARP SQ SCH (09:04)
[2018-01-24 09:07] VITALS: BP 150/78; PULSE 79; O2SAT 70
[2018-01-24] MEDS ORDERED: MRLP17X PO (12:28)
[2018-01-24] MEDS ORDERED: MOMLX PO (12:28)
[2018-01-24] MEDS ORDERED: MLXESC PO (12:28)
[2018-01-24] MEDS ORDERED: ALPR-411 PO (12:28)
[2018-01-24] MEDS ORDERED: OXYC-57 PO (12:28)
--- NOTE | 2018-01-24 12:29 | Discharge Instructions ---
Discharge Instructions Date of Service Jan 24, 2018. Admission Reason for Admission: Pubic Ramus Fracture Discharge Discharge Diagnosis / Problem: RT PELVIC RAMUS FRACTURE /OSTEOPORESIS Discharge Goals Goal(s): Decrease discomfort, Improve function, Increase independence, Improve disease control, Diagnostic testing Activity Recommendations Activity Level: Assistance Required Therapies: Physical Therapy, Occupational Therapy Weightbearing Status: Right weightbearing (as tolerated) . Additional Information Patient informed of condition: Yes Advance Directives: Yes DNR: Yes Level of Care: Skilled Communicable Disease: No Prognosis: Stable Crowley Catheter: No Instructions / Follow-Up Instructions / Follow-Up FOLLOW UP WITH ORTHOPEDICS DR FRANCOIS IN 2 WEEKS PLEASE CALL OFFICE FOR APPOINTMENT Current Hospital Diet Patient's current hospital diet: Low Sodium Diet (2gm Na) Discharge Diet Recommended Diet: Low Sodium Diet (2gm Na) Pending Studies Studies pending at discharge: no Medical Emergencies . Who to Call and When: Medical Emergencies: If at any time you feel your situation is an emergency, please call 911 immediately. . Non-Emergent Contact Non-Emergency issues call your: Primary Care Provider . . "Provider Documentation" section prepared by Caity Perez. . Core Measure Problem Core Measures: None
[2018-01-24] MEDS ORDERED: MAGNESIUM OXIDE 400 MG TAB PO ONE (12:32)
[2018-01-24] MEDS ORDERED: CHOL1000 PO (12:36)
--- NOTE | 2018-01-24 12:44 | Progress Note ---
Progress Note Date of Service Jan 24, 2018. Progress Note ATTENDING ADDENDUM Labs reviewed Patient developed thrombocytopenia with platelet count of 99 today On admission 01/22/2018: Platelet count was 131 Was started with subcu heparin for DVT prophylaxis 01/23/2018 platelet count 116 Hemoglobin stable 12.7 No evidence of bleeding Coags panel on 01/22/2018 was within normal limits Order to DC subcu heparin Order for HIT antibody-to assess heparin-induced thrombocytopenia Peripheral blood smear to be evaluated by pathology Follow daily CBC Avoid antiplatelets, SCD and teds ordered for DVT prophylaxis
[2018-01-24] MEDS: ACETAMINOPHEN 325 MG TAB PO PRN (14:03)
[2018-01-24] MEDS ORDERED: MGNO400 PO (15:53)
[2018-01-24] MEDS ORDERED: POLYETHYLENE (MIRALAX) 17 GM PACK PO PRN (16:00)
[2018-01-24] MEDS ORDERED: BISACODYL 5 MG TABEC PO PRN (16:00)
[2018-01-24 16:35] VITALS: BP 110/66; PULSE 71; TEMP 36.9; O2SAT 94
--- NOTE | 2018-01-24 19:12 | Progress Note ---
Internal Med Progress Note Date of Service: Jan 24, 2018. Provider Documentation: SUBJECTIVE: Pain much better controlled today Had not had a bowel movement since admission No complaint of nausea, no abdominal pain No fever or chills OBJECTIVE: Vital Signs-as noted below Exam: General-elderly female, no apparent Eyes-clear nonicteric, pupils bilateral equal reactive light extraocular muscles ENT-moist oral mucosa Neck-no JVD, no carotid bruit noted, no thyromegaly, trachea mid Lungs-clear to auscultate, no wheeze or rales Heart-S1 and S2 no murmur Abdomen-soft nontender, no organomegaly Extremities-no rash or deformity, no lower extremity Neuro-no focal neurological deficit Lab data as noted below. ASSESSMENT & PLAN: RIGHT PUBIC RAMUS FRACTURE, STATUS POST MECHANICAL FALL Due to loss of balance, leading to fall CT of pelvis shows nondisplaced to minimally displaced fracture of the right superior and inferior pubic rami Appreciate input from orthopedics Conservative management with weightbearing as tolerated possible Osteoporotic Fx ; Xray of pelvis shows severe osteopenia con Calcium /Vit D supplement PT OT pt lives alone ,uses walker at baseline , at present mobility is limited due to pelvis pain /Rt Pubic ramus Fx will benefit with short-term rehab Referral made to [facility] Outpatient follow-up with orthopedics in 4-6 weeks OSTEOPOROSIS : xray of Hip and Pelvis shows severe Osteopenia pt will be continued with Vit D and Calcium supplement cont Fosamax Vit D level 32.5 LOW MAGNESIUM Ordered for replacement CHRONIC HYPOXEMIC RESPIRATORY FAILURE Patient is on chronic oxygen 2 L by nasal cannula with activity and at bedtime Respiratory status at baseline Continue supplemental O2 CHRONIC DIASTOLIC CHF/PULMONARY HYPERTENSION No evidence of volume overload or dehydration Continue p.o. Lasix HYPOTHYROIDISM Continue levothyroxine ANXIETY DISORDER Continue citalopram As needed alprazolam GERD/HIATAL HERNIA Continue PPI HYPERLIPIDEMIA Continue statin DVT PROPHYLAXIS Subcu heparin CODE STATUS: DNR/DNI DISPOSITION Patient will benefit with rehab referral made to [facility] Social service following for discharge plan will be discharged to SNF tomorrow if bed available Vital Signs: Date Time Temp Pulse Resp B/P (MAP) Pulse Ox O2 Delivery O2 Flow Rate FiO2 01/25/18 15:40 36.9 70 16 105/65 (78) 95 Nasal Cannula 3.0 01/25/18 14:07 37.1 81 16 82 Nasal Cannula 01/25/18 09:10 81 82 01/25/18 08:30 94 Nasal Cannula 3.0 01/25/18 07:20 Nasal Cannula 2.0 01/25/18 07:15 37.1 73 16 126/78 (94) 94 Nasal Cannula 3.0 01/24/18 23:50 93 Nasal Cannula 2.0 01/24/18 23:15 36.8 64 16 99/63 (75) 93 Nasal Cannula 3.0 Lab Results: Results Past 24 Hours Test 01/25/18 05:40 Range/Units White Blood Count 4.57 4.8-10.8 K/uL Red Blood Count 3.63 4.2-5.4 M/uL Hemoglobin 12.1 12.0-16.0 g/dL Hematocrit 37.8 37-47 % Mean Corpuscular Volume 104.1 80-100 fL Mean Corpuscular Hemoglobin 33.3 25-34 pg Mean Corpuscular Hemoglobin Concent 32.0 32-36 g/dl RDW Standard Deviation 55.4 36.4-46.3 fL RDW Coefficient of Variation 14.4 11.5-14.5 % Platelet Count 97 130-400 K/uL Mean Platelet Volume 10.7 7.4-10.4 fL Sodium Level 139 136-145 mmol/L Potassium Level 4.0 3.5-5.1 mmol/L Chloride Level 97 98-107 mmol/L Carbon Dioxide Level 39 21-32 mmol/L Anion Gap 3.0 3-11 mmol/L Blood Urea Nitrogen 11 7-18 mg/dl Creatinine 0.39 0.60-1.20 mg/dl Est Creatinine Clear Calc Drug Dose 90.6 ml/min Estimated GFR () 113.4 Estimated GFR (Non- 97.8 BUN/Creatinine Ratio 28.1 10-20 Random Glucose 97 70-99 mg/dl Calcium Level 8.9 8.5-10.1 mg/dl Magnesium Level 1.7 1.8-2.4 mg/dl
[2018-01-24] MEDS: ATORVASTATIN 20 MG TAB PO SCH (21:05)
[2018-01-24] MEDS: MAGNESIUM OXIDE 400 MG TAB PO SCH (21:06)
[2018-01-24] MEDS: ALPRAZOLAM 0.5 MG TAB PO PRN (21:11)
[2018-01-24 23:15] VITALS: BP 99/63; PULSE 64; TEMP 36.8; O2SAT 93
[2018-01-24 23:50] VITALS: O2SAT 93
[2018-01-25] MEDS: LEVOTHYROXINE 50 MCG TAB PO SCH (06:03)
[2018-01-25 06:15] LABS: HEMATOCRIT 37.8 % (37-47); HEMOGLOBIN 12.1 g/dL (12.0-16.0); MEAN CELL VOLUME 104.1 fL (80-100); MEAN CORPUSCULAR HEMOGLOBIN 33.3 pg (25-34); RED CELL DISTRIBUTION WIDTH CV 14.4 % (11.5-14.5); RED CELL DISTRIBUTION WIDTH SD 55.4 fL (36.4-46.3); WHITE BLOOD COUNT 4.57 K/uL (4.8-10.8)
[2018-01-25 06:17] LABS: MEAN PLATELET VOLUME 10.7 fL (7.4-10.4); PLATELET COUNT 97 K/uL (130-400)
[2018-01-25] MEDS: ACETAMINOPHEN 325 MG TAB PO PRN ×2 (06:42→14:15)
[2018-01-25 06:49] LABS: CALCIUM 8.9 mg/dl (8.5-10.1); CREATININE 0.39 mg/dl (0.60-1.20)
[2018-01-25 07:15] VITALS: BP 126/78; PULSE 73; TEMP 37.1; O2SAT 94
[2018-01-25 08:30] VITALS: O2SAT 94
[2018-01-25] MEDS: PILOCARPINE HCL 4% OP SOLN 15 ML BTL OPB SCH (08:49)
[2018-01-25] MEDS: DOCUSATE SODIUM 100 MG CAP PO SCH (08:50)
[2018-01-25] MEDS: CHOLECALCIFEROL 1000 INTER.UNIT TAB PO SCH (08:50)
[2018-01-25] MEDS: MAGNESIUM OXIDE 400 MG TAB PO SCH (08:50)
[2018-01-25] MEDS: CITALOPRAM 20 MG TAB PO SCH (08:51)
[2018-01-25] MEDS: METOPROLOL SUCC 25MG EXT REL TAB PO SCH (08:51)
[2018-01-25] MEDS: PANTOprazole SOD 40 MG TAB PO SCH (08:51)
[2018-01-25] MEDS: OMEGA-3 (PURIFIED FISH OIL) 1 GM CAP PO SCH (08:52)
[2018-01-25] MEDS: LISINOPRIL 2.5 MG TAB PO SCH (08:52)
[2018-01-25] MEDS: CALCIUM 600MG + VIT D 400 IU TAB PO SCH (08:53)
[2018-01-25] MEDS: FUROSEMIDE 40 MG TAB PO SCH (08:53)
[2018-01-25] MEDS: MULTIVITAMIN TAB PO SCH (08:53)
[2018-01-25] MEDS: BRIMONIDINE TARTRATE-TIMOLOL M 1 DROP BTL OPL SCH (08:54)
[2018-01-25] MEDS: FAMOTIDINE 20 MG TAB PO SCH (08:55)
[2018-01-25 09:10] VITALS: PULSE 81; O2SAT 82
[2018-01-25] MEDS: ALPRAZOLAM 0.5 MG TAB PO PRN (09:23)
--- NOTE | 2018-01-25 12:16 | Discharge Summary ---
Discharge Summary Date of Service Jan 25, 2018. Discharge Summary Admission Date: Jan 22, 2018 at 14:45 Discharge Date: Jan 25, 2018 Discharge Disposition: Rehab ([facility]ann Haney ) Principal Diagnosis: RT PELVIC RAMUS FRACTURE /OSTEOPOROSIS Procedures: CT OF LOWER EXTREMITY/Pelvis IMPRESSION: 1. Nondisplaced to minimally displaced fractures of the right superior and inferior pubic rami. 2. No convincing evidence of periprosthetic fracture allowing for significant image quality degradation due to hardware. Furthermore, osteopenia degrades evaluation. X-RAY OF PELVIS IMPRESSION: Severe osteopenia limits evaluation for fracture. Allowing for this, no acute osseous injury is apparent. If there is continuing clinical concern, CT should be obtained due to the limited sensitivity of this radiograph. X-RAY OF FEMUR IMPRESSION: Findings suspicious for nondisplaced fracture immediately inferior to the inferior most cerclage wire along the posterior lateral proximal metadiaphysis of the right femur. Consultations: ORTHOPEDICS Medication Reconciliation New Medications: Aluminum/Magnesium/Simeth (Mag-Al Plus Xs 400-400-40 mg/5Ml) 30 Ml Susp 15 ML PO Q4H PRN for Dyspepsia for 30 Days Magnesium Hydroxide (Milk of Magnesia) 30 Ml Susp 30 ML PO Q6H PRN for Constipation for 30 Days Magnesium Oxide (Magnesium-Oxide) 400 Mg Tab 400 MG PO DAILY for 30 Days, #30 TAB Polyethylene (Miralax) 17 Gm Pow 17 GM PO DAILY PRN for Constipation for 30 Days Changed Medications: Cholecalciferol (Vitamin D3) 1,000 Unit Tab 1 TAB PO BID for 90 Days, #180 TAB 3 Refills (Changed from: DAILY; 90) Continued Medications: Alendronate Sodium (Fosamax) 70 Mg Tab 70 MG PO WK, TAB SATURDAYS Alprazolam (Xanax) 0.5 Mg Tab 0.5 MG PO BID PRN for Anxiety, #10 TAB (This prescription has been renewed) Atorvastatin (Lipitor) 20 Mg Tab 20 MG PO HS Brimonidine Tartrate-Timolol M (Combigan) 1 Maria G Maria G 1 DROP OPL BID Calcium Carbonate-Cholecalcife (Caltrate 600+D) 1 Tab Tab 1 TAB PO DAILY Citalopram Hydrobromide (Citalopram Hydrobromide) 10 Mg Tab 1 TAB PO DAILY for 90 Days, #90 TAB 3 Refills Famotidine (Pepcid) 20 Mg Tab 20 MG PO DAILY, TAB Fish Oil ([place]-3) 1 Ea Cap 1000 MG PO DAILY, CAP Furosemide (Lasix) 40 Mg Tab 40 MG PO UD, TAB one tablet daily. may take additonal tablet if needed for swelling Stwhszjcbmw-Vmxhyspccat-Cdqcac (Glucosamine Chondroitin M) 1 Tab Tab 1 TAB PO DAILY Home O2 Therapy (Oxygen) Gas 2 LITERS NA UD 2L NC with activity and HS (pt takes differently - uses HS only) Levothyroxine Sodium (Synthroid) 50 Mcg Tab 50 MCG PO DAILY, TAB Lisinopril (Zestril) 2.5 Mg Tab 2.5 MG PO DAILY Loperamide Hcl (Anti-Diarrheal) 2 Mg Cap 2 MG PO UD PRN for Diarrhea Metoprolol Succ (Toprol Xl) (Toprol-Xl) 25 Mg Tabcr 25 MG PO DAILY, #30 TAB Multivitamin (Multivitamin) Tab 1 TABLET PO DAILY Pantoprazole (Protonix) 40 Mg Tab 40 MG PO DAILY, #30 TAB Pilocarpine Hcl (Isopto Carpine 4% Oph) 4 % Maria G 2 DROPS OPB BID Referrals At Discharge Follow up Referrals: Orthopedics Referral - Please Call For Appointment with Leonard Francois D.O. Admission Information HPI (per Admitting provider): Pt is 82 y/o F with PMH chronic diastolic CHF, pulmonary hypertension, hiatal hernia, GERD, HLD, chronic hypoxic respiratory failure on oxygen 2 LNC with activity and at bedtime (patient using differently and using at bedtime only), BRANDON on oxygen 2L NC at bedtime, hypothyroidism, anxiety presented to ER with complaint of right hip pain after fall. Patient states this morning she was trying to weigh herself and when getting on the scale lost her balance falling onto right side. Patient denies hitting her head. Denies any prior dizziness. Denies LOC. Patient complaining of pain to right hip and right groin area with limited range of motion and unable to fully bear weight to right leg secondary to pain. 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 Denies any lower extremity paresthesias or loss of sensation. Denies back, knee, ankle/foot, neck pain, denies any other injury. Patient reports that she weighs herself daily and her weight has been staying within 2 pounds. If weight goes up more than 2 pounds she takes additional Lasix. She denies any increased shortness of breath from baseline, chest pain, increased edema. Patient reports history of chronic loose stools and uses Imodium once daily as needed. Has not used yesterday or today. Denies fever/chills, diaphoresis, N/V/ C, HARRISON, orthopnea, palpitations, cough, sore throat, choking, otalgia, rhinorrhea , abdominal pain, rashes, urinary symptoms. Patient denies history of frequent falls. Physical Exam (per Admitting): General Appearance: WD/WN, no apparent distress Head: normocephalic, atraumatic Eyes: normal inspection, PERRL, sclerae normal ENT: hearing grossly normal, pharynx normal, + pertinent finding (Mucous membranes moist) Neck: supple, trachea midline Respiratory/Chest: no respiratory distress, no accessory muscle use, + decreased breath sounds Cardiovascular: regular rate, rhythm, normal peripheral pulses Abdomen/GI: normal bowel sounds, non tender, soft Extremities/Musculoskelatal: + pertinent finding (Right hip: Right anterior lateral hip tender to palpation, no ecchymosis or erythema noted, limited ability to flex hip secondary to pain. Remaining right leg and right knee/ right ankle nontender to palpation, no edema or ecchymosis noted. Remaining extremities nontender with range of motion intact. Bilateral pedal pushes and pulls intact. Distal pulses intact. Brisk capillary refill. Sensation to light touch intact.) Neurologic/Psych: alert, normal mood/affect, oriented x 3 Skin: warm/dry Hospital Course Hip pain, stable No fever or chills Accepted at rehab Patient will be transferred to [facility] today PHYSICAL EXAM : Last 8 Hrs Date Time Temp Pulse Resp B/P (MAP) Pulse Ox O2 Delivery O2 Flow Rate FiO2 01/25/18 09:10 81 82 01/25/18 08:30 94 Nasal Cannula 3.0 01/25/18 07:20 Nasal Cannula 2.0 01/25/18 07:15 37.1 73 16 126/78 (94) 94 Nasal Cannula 3.0 ASSESSMENT AND PLAN : RIGHT PUBIC RAMUS FRACTURE, STATUS POST MECHANICAL FALL Due to loss of balance, leading to fall CT of pelvis shows nondisplaced to minimally displaced fracture of the right superior and inferior pubic rami Appreciate input from orthopedics Conservative management with weightbearing as tolerated possible Osteoporotic Fx ; Xray of pelvis shows severe osteopenia con Calcium /Vit D supplement PT OT pt lives alone ,uses walker at baseline , at present mobility is limited due to pelvis pain /Rt Pubic ramus Fx will benefit with short-term rehab Outpatient follow-up with orthopedics in 4-6 weeks OSTEOPOROSIS : xray of Hip and Pelvis shows severe Osteopenia pt will be continued with Vit D and Calcium supplement cont Fosamax Vitamin D level within normal limit LOW MAGNESIUM Corrected CHRONIC HYPOXEMIC RESPIRATORY FAILURE Patient is on chronic oxygen 2 L by nasal cannula with activity and at bedtime Respiratory status at baseline Continue supplemental O2 CHRONIC DIASTOLIC CHF/PULMONARY HYPERTENSION No evidence of volume overload or dehydration Continue p.o. Lasix HYPOTHYROIDISM Continue levothyroxine ANXIETY DISORDER Continue citalopram As needed alprazolam GERD/HIATAL HERNIA Continue PPI HYPERLIPIDEMIA Continue statin DVT PROPHYLAXIS Subcu heparin CODE STATUS: DNR/DNI DISPOSITION Stable to be transferred to skilled rehab today Total time spent on discharge = 40 mins This includes examination of the patient, discharge planning, medication reconciliation, and communication with other providers. Discharge Instructions Discharge Instructions Date of Service Jan 24, 2018. Admission Reason for Admission: Pubic Ramus Fracture Discharge Discharge Diagnosis / Problem: RT PELVIC RAMUS FRACTURE /OSTEOPOROSIS Discharge Goals Goal(s): Decrease discomfort, Improve function, Increase independence, Improve disease control, Diagnostic testing Activity Recommendations Activity Level: Assistance Required Therapies: Physical Therapy, Occupational Therapy Weightbearing Status: Right weightbearing (as tolerated) . Additional Information Patient informed of condition: Yes Advance Directives: Yes DNR: Yes Level of Care: Skilled Communicable Disease: No Prognosis: Stable Crowley Catheter: No Instructions / Follow-Up Instructions / Follow-Up FOLLOW UP WITH ORTHOPEDICS DR FRANCOIS IN 2 WEEKS PLEASE CALL OFFICE FOR APPOINTMENT Current Hospital Diet Patient's current hospital diet: Low Sodium Diet (2gm Na) Discharge Diet Recommended Diet: Low Sodium Diet (2gm Na) Pending Studies Studies pending at discharge: no Medical Emergencies . Who to Call and When: Medical Emergencies: If at any time you feel your situation is an emergency, please call 911 immediately. . Non-Emergent Contact Non-Emergency issues call your: Primary Care Provider . . "Provider Documentation" section prepared by Caity Perez. . Core Measure Problem Core Measures: None
[2018-01-25] MEDS ORDERED: BISACODYL 10 MG SUPP PR STA (12:17)
[2018-01-25 14:07] VITALS: BP 126/78; PULSE 81; TEMP 37.1; O2SAT 82
[2018-01-25 15:40] VITALS: BP 105/65; PULSE 70; TEMP 36.9; O2SAT 95
== END 2018-01-25 16:00 | DRG 543 ==
LOC: EDBD 10:53 → C.EDC 10:55 → C.MSW 14:45 → ENRESERV 15:18
PROVIDERS: ADMIT Hospitalist; ATTEND Hospitalist
DX: M84.454A Pathological fracture, pelvis, initial encounter for fracture (principal); S32.501A Unspecified fracture of right pubis, initial encounter for closed fracture; W17.89XA Other fall from one level to another, initial encounter; J96.11 Chronic respiratory failure with hypoxia; Y92.019 Unspecified place in single-family (private) house as the place of occurrence of the external cause; I50.32 Chronic diastolic (congestive) heart failure; G47.33 Obstructive sleep apnea (adult) (pediatric); E83.42 Hypomagnesemia; E03.9 Hypothyroidism, unspecified; E78.5 Hyperlipidemia, unspecified; Z96.653 Presence of artificial knee joint, bilateral; I27.20 Pulmonary hypertension, unspecified; K21.9 Gastro-esophageal reflux disease without esophagitis; F41.9 Anxiety disorder, unspecified; M81.0 Age-related osteoporosis without current pathological fracture